=== PATIENT | female | born 1975 | race Caucasian/White ===

== ENCOUNTER 2024-01-31 18:00 | Emergency (ER) | payer MEDICARE, MEDICAID, SELFPAY ==
[2024-01-31 18:15] VITALS: BP 103/86; PULSE 86; RESP 20; TEMP 36.4; O2SAT 95
--- NOTE | 2024-01-31 18:51 | ED_ITS ---
HPI - URI/Sore Throat General Chief Complaint: Upper Respiratory Infection Stated Complaint: Shortness of breath, cough Time Seen by Provider: 01/31/24 18:51 Source: patient, RN notes reviewed and old records reviewed Mode of arrival: ambulatory Limitations: no limitations History of Present Illness HPI Narrative: 48-year-old female to Express Care with complaint of fever, cough, shortness of breath, sore throat, wheezing for 3 days. Patient endorses fever up to 101?. Patient has attempted to treat symptoms with NyQuil, DayQuil, cough drops. Patient able to tolerate fluids by mouth. Patient resting quietly in exam room. Respirations even and nonlabored. Patient in no acute distress. Related Data Home Medications Medication Instructions Recorded Confirmed albuterol sulfate 90 mcg/actuation 2 puff inhalation QID PRN 04/03/19 01/31/24 aerosol inhaler (Ventolin HFA) Shortness Of Breath alirocumab 150 mg/mL subcutaneous 150 mg subcut [id number] 04/03/19 01/31/24 pen injector (Praluent Pen) aspirin 81 mg chewable tablet 81 mg PO DAILY 04/03/19 01/31/24 atorvastatin 80 mg tablet 80 mg PO DAILY 04/03/19 01/31/24 clopidogrel 75 mg tablet (Plavix) 75 mg PO DAILY 04/03/19 01/31/24 diclofenac sodium 75 mg 75 mg PO BID 04/03/19 01/31/24 tablet,delayed release duloxetine 30 mg capsule,delayed 30 mg PO DAILY 04/03/19 01/31/24 release sprinkle metoprolol tartrate 25 mg tablet 25 mg PO DAILY 01/31/24 01/31/24 prasugrel 10 mg tablet 10 mg PO DAILY 01/31/24 01/31/24 Allergies Allergy/AdvReac Type Severity Reaction Status Date / Time codeine Allergy Unknown HALLUCINATI Verified 01/31/24 18:24 ONS Sulfa (Sulfonamide Allergy Unknown MOUTH SORES Verified 01/31/24 18:24 Antibiotics) Review of Systems Review of Systems: All systems reviewed & are unremarkable except as noted in HPI and below Constitutional: Constitutional: Reports as per HPI and Reports fever(s) Eyes: Eyes: Reports no additional eye complaints ENT: Reports as per HPI and Reports sore throat Cardiovascular: Cardiovascular: Reports no additional cardiovascular complaints, Denies chest pain and Denies dyspnea Respiratory: Respiratory: Reports as per HPI, Reports cough, Reports dyspnea and Reports wheezing Musculoskeletal: Musculoskeletal: Reports no additional musculoskeletal complaints Neurologic: Reports system reviewed and no additional complaints, except as documented Psychiatric: Psychiatric: Reports no additional psychiatric complaints [facility] Past Medical History Medical History Myocardial infarction Rheumatoid arthritis Surgical History Surgical History H/O heart artery stent Comments At the time of my signature, I reviewed and agree with the nursing past medical, surgical, social, and family history. There is no relevant family history pertinent to the patient complaint. Exam Const: General: cooperative, no acute distress, alert, ill appearing acutely, tired appearing, uncomfortable and well nourished Nutritional Appearance: well nourished Orientation/consciousness: patient oriented x3 Limitations: no limitations HENMT: Head: normal to inspection Ears: external ears normal Face/Nose/Sinus: Normal external nose present, Normal nares present, normal facial exam, No erythema and No edema Face and sinus: normal facial exam, no erythema and no edema Mouth: Yes Normal oral and palatal mucosa present Throat: posterior oropharynx abnormal erythema and postnasal drainage Eyes: General: appearance normal, both eyes and all related structures Neck: Neck: normal visual inspection, full ROM and no meningeal signs Lymphatic: no lymphadenopathy noted and no lymphedema noted Chest: Chest palpation & inspection: normal inspection of the chest Resp: Effort & Inspection: normal respiratory effort and able to speak in complete sentences Auscultation: crackles bilateral and diffuse Cardio: Jugular venous distension: no JVD Rate: regular rate Back/Spine/Pelvis: Cervical Spine: cervical ROM normal Skin: General skin exam: normal color, no rashes or lesions noted and turgor normal Neuro: General: patient oriented x3, gait normal, moves all extremities and no meningeal signs Speech: normal speech Gait exam (Neuro): Normal gait present Extrem: General: normal to inspection, full ROM and capillary refill normal Psych: Appearance: grossly normal and well kempt Course Course Emergency Course: Some parts of this dictation were generated by voice recognition software and may contain typographical and/or grammatical inaccuracies. Level of Care: Express Care Visit Vital Signs Vital signs: Vital Signs Temperature 36.4 C 01/31/24 18:15 Pulse Rate 86 01/31/24 18:15 Respiratory Rate 20 01/31/24 18:15 Blood Pressure 103/86 01/31/24 18:15 Pulse Oximetry 95 01/31/24 18:15 Oxygen Delivery Room Air 01/31/24 18:15 Temperature 36.4 C 01/31/24 18:15 Pulse Rate 86 01/31/24 18:15 Respiratory Rate 20 01/31/24 18:15 Blood Pressure 103/86 01/31/24 18:15 Pulse Oximetry 95 01/31/24 18:15 Oxygen Delivery Room Air 01/31/24 18:15 reviewed MDM - URI/Sore Throat MDM Narrative Medical decision making narrative: 48-year-old female to Express Care with complaint of fever, cough, shortness of breath, sore throat, wheezing for 3 days. Patient endorses fever up to 101?. Patient has attempted to treat symptoms with NyQuil, DayQuil, cough drops. Patient able to tolerate fluids by mouth. Patient resting quietly in exam room. Respirations even and nonlabored. Patient in no acute distress. on exam, patient appears tired, uncomfortable, acutely ill. posterior oropharynx erythematous with postnasal drainage. On auscultation, bilateral scattered crackles present. Consistent with pneumonia. Patient is sitting uncomfortably in exam room nontoxic in appearance. Patient appropriate for outpatient treatment and follow-up. Discharge instructions reviewed with patient, as well as provided in writing per nursing staff. The instructions also include specific and strict return/GO TO THE ER as well as f/u information. All questions have been answered, and the patient deny any further questions with discharge and discharge plan. Some parts of this dictation were generated by voice recognition software and may contain typographical and/or grammatical inaccuracies. Differential Diagnosis Differential diagnosis: Likely upper respiratory infection, croup, otitis media, sinusitis, viral infection, bronchitis, influenza and pharyngitis Discharge Plan Discharge Clinical Impression: Pneumonia Patient Disposition: Home, Self-Care Condition: Stable Instructions: Pneumonia (ED) Additional Instructions: -Alternate Tylenol and Motrin per package directions for fever or pain. -Antihistamine medication such as Benadryl at night and Zyrtec/Claritin/Dede during the day can help improve symptoms. -Use Flonase twice a day for 5 days then daily to help reduce the inflammation and dry up your sinuses. -You can also use Sudafed or Mucinex. Be sure to drink plenty of water with these medications at least 8 ounces with every dose and it is important to drink 8 to 10 glasses of water per day. Water is a natural decongestant -Eat and drink things that are easy to swallow, like tea or soup, or popsicles. -Oral rinses such as: Salt water gargles and/or may use topical anesthetic (eg. Chloraseptic spray) or lozenges to relieve dryness or throat pain). -Frequent hand washing or hand capacity planning manager is one of the best ways to prevent spread of infection. -Using a vaporizer or humidifier at night will also help thin secretions and help with coughing up phlegm. -Follow up with primary care provider in 2-3 days if condition is not improving; or seek ER visit if you have trouble breathing, cannot drink enough fluids, have muffled voice, difficulty opening your mouth, or severe swelling. Prescriptions: New amoxicillin 500 mg capsule 1,000 mg PO Q8H 5 Days Qty: 30 0RF No Action atorvastatin 80 mg Tablet 80 mg PO DAILY clopidogrel [Plavix] 75 mg Tablet 75 mg PO DAILY diclofenac sodium 75 mg Tablet,Delayed Release (Dr/Ec) 75 mg PO BID Praluent Pen 150 mg/mL Pen Injector 150 mg SUBCUT [id number] duloxetine 30 mg Capsule, Delayed Rel Sprinkle 30 mg PO DAILY aspirin 81 mg Tablet,Chewable 81 mg PO DAILY albuterol sulfate [Ventolin HFA] 90 mcg/actuation Hfa Aerosol Inhaler 2 puff INHALATION QID PRN (Reason: Shortness Of Breath) prasugrel 10 mg tablet 10 mg PO DAILY metoprolol tartrate 25 mg tablet 25 mg PO DAILY Follow-up/Referrals: PHYSICIAN,DIRECTOR OF REAL ESTATE [Primary Care Provider] - Stand Alone Forms: Work/School Release IP
== END 2024-01-31 19:15 | disposition home or self-care (01) ==
PROVIDERS: Emergency Provider Nurse Practitioner Family
DX: J18.9 Pneumonia, unspecified organism (principal); M06.9 Rheumatoid arthritis, unspecified; I25.2 Old myocardial infarction; Z95.5 Presence of coronary angioplasty implant and graft; Z79.01 Long term (current) use of anticoagulants
CPT/HCPCS: 99213; G0463